=== PATIENT | female | born 2000 ===

== ENCOUNTER 2018-04-07 13:13 | Emergency (ER) | payer OTHER ==
[~2018-04-07] VITALS: Ht 152.4 cm; Wt 83.9 kg
== END 2018-04-07 16:35 ==
LOC: ER 13:13
DX: S90.572A Other superficial bite of ankle, left ankle, initial encounter (principal); W55.01XA Bitten by cat, initial encounter; Y93.89 Activity, other specified; Y92.89 Other specified places as the place of occurrence of the external cause; Y99.8 Other external cause status